=== PATIENT | female | born 1940 ===

== ENCOUNTER 2018-08-02 12:29 | Observation (INO) | payer MEDICARE, OTHER ==
[~2018-08-02] VITALS: Ht 167.6 cm; Wt 73.9 kg
[~2018-08-02 12:29] MED LIST: ASPI-515 PO; CALC500T93 PO; LISI40TA PO; LOVA40TA2 PO; RANI150C PO
[2018-08-02] MEDS ORDERED: CLON0.1T PO (13:01)
[2018-08-02] MEDS ORDERED: ASPIRIN 81 MG TABLET CHEW ONE (13:21)
[2018-08-02] MEDS ORDERED: NITROGLYCERIN OINT 2%, 1GM TP ONE ×2 (13:21→13:30)
[2018-08-02 13:23] LABS: BASOPHILS # (AUTO) 0.04 x10^3/uL (0-0.1); BASOPHILS % (AUTO) 1 % (0-1); EOSINOPHILS # (AUTO) 0.34 x10^3/uL (0-0.4); EOSINOPHILS % (AUTO) 7 % (1-7); LYMPHOCYTES # (AUTO) 1.29 x10^3/uL (1-3.4); LYMPHOCYTES % (AUTO) 28 % (22-44); MD NO; MEAN CORPUSCULAR HEMOGLOBIN 30.4 pg (27.0-34.8); MEAN CORPUSCULAR HGB CONC 34.3 g/dL (32.4-35.8); MEAN CORPUSCULAR VOLUME 88.5 fL (80-100); MEAN PLATELET VOLUME 8.7 fL (7.4-10.4); MONOCYTES # (AUTO) 0.49 x10^3/uL (0.2-0.8); MONOCYTES % (AUTO) 11 % (2-9); NEUTROPHILS % (AUTO) 54 % (42-75); PLATELET COUNT 190 x10^3/uL (130-400); RED BLOOD COUNT 4.32 x10^6/uL (3.82-5.3); RED CELL DISTRIBUTION WIDTH 14.2 % (9.6-15.2)
[2018-08-02] MEDS ORDERED: ASPIRIN 81 MG TABLET CHEW PO ONE (13:30)
[2018-08-02] MEDS ORDERED: SODIUM CHLORIDE FLUSH 10ML SYR IVF ONE (13:30)
[2018-08-02 13:36] LABS: ALANINE AMINOTRANSFERASE 51 U/L (12-78); ALBUMIN 3.8 g/dL (3.4-5.0); ANION GAP 10 mmol/L (5-15); CALCIUM 9.1 mg/dL (8.5-10.1); CHLORIDE 109 mmol/L (98-107); CREATININE 0.95 mg/dL (0.55-1.02)
[2018-08-02 13:41] LABS: ALKALINE PHOSPHATASE 105 U/L (45-117); BILIRUBIN,TOTAL 1.2 mg/dL (0.2-1.0); TOTAL PROTEIN 7.6 g/dL (6.4-8.2); TROPONIN I < 0.015 ng/mL (0.000-0.045)
[2018-08-02 14:00] LABS: MICROSCOPIC AUTO
[2018-08-02 14:06] LABS: CULTURE INDICATED? YES
[2018-08-02] MEDS ORDERED: SODIUM CHLORIDE 0.9% 1,000 ML IV SCH (14:45)
[2018-08-02] MEDS ORDERED: ONDANSETRON 2MG/ML, 2ML IVPush PRN (15:00)
[2018-08-02] MEDS ORDERED: hydrALAzine 20 MG/ML, 1ML IVPush PRN (15:00)
[2018-08-02] MEDS ORDERED: BISACODYL 10 MG SUPP PR PRN (15:00)
[2018-08-02] MEDS ORDERED: POLYETHYLENE GLYCOL 17 GM PACKET PO PRN (15:00)
[2018-08-02] MEDS ORDERED: DOCUSATE 100 MG CAPSULE PO PRN (15:00)
[2018-08-02] MEDS ORDERED: ENALAPRILAT 1.25 MG/ML, 2ML IVPush PRN (15:00)
[2018-08-02 15:14] VITALS: BP 160/68
[2018-08-02] MEDS: ENOXAPARIN 40 MG/0.4 ML SQ SCH (15:24)
[2018-08-02] MEDS ORDERED: PRAV20TA2 PO (17:09)
[2018-08-02] MEDS ORDERED: LEVO50TA5 PO (17:09)
[2018-08-02] MEDS ORDERED: CALC-534 PO (17:09)
[2018-08-02 19:30] LABS: TROPONIN I < 0.015 ng/mL (0.000-0.045)
[2018-08-02] MEDS ORDERED: PRED5DRO15 RIGHTEYE (19:52)
[2018-08-02 20:00] VITALS: BP 165/68
[2018-08-02] MEDS: predniSOLONE OPHTH SUSP 1%, 5ML RIGHTEYE SCH (20:10)
[2018-08-03] VITALS (9 sets, daily range): BP systolic 101–214; BP diastolic 59–88
[2018-08-03 00:09] LABS: TROPONIN I < 0.015 ng/mL (0.000-0.045)
[2018-08-03] MEDS: predniSOLONE OPHTH SUSP 1%, 5ML RIGHTEYE SCH ×4 (04:57→19:44)
[2018-08-03 05:37] LABS: CHOL/HDL RATIO 5.3; LDL/HDL RATIO 2.1 (0.5-3.0)
[2018-08-03] MEDS ORDERED: ASPIRIN 325 MG TABLET EC PO SCH (06:00)
[2018-08-03] MEDS: ACETAMINOPHEN 325 MG TABLET PO PRN (06:50)
[2018-08-03] MEDS: LISINOPRIL 20 MG TABLET PO SCH (08:05)
[2018-08-03] MEDS: ASPIRIN 81 MG TABLET EC PO SCH (14:40)
[2018-08-03] MEDS ORDERED: AMLODIPINE 5 MG TABLET PO SCH (15:00)
[2018-08-03] MEDS: ENOXAPARIN 40 MG/0.4 ML SQ SCH (15:03)
[2018-08-03] MEDS: AMLODIPINE 5 MG TABLET PO SCH (16:31)
[2018-08-03] MEDS ORDERED: OMNIPAQUE 350 MG/ML, 100ML BOTTLE ONE (18:05)
[2018-08-04] MEDS: ACETAMINOPHEN 325 MG TABLET PO PRN (00:09)
[2018-08-04 00:54] VITALS: BP 104/68
[2018-08-04 01:00] VITALS: BP 152/65
[2018-08-04] MEDS: predniSOLONE OPHTH SUSP 1%, 5ML RIGHTEYE SCH ×2 (05:12→11:52)
[2018-08-04 07:00] VITALS: BP_SYST 120; BP_SYST 182; BP_DIAS 73; BP_DIAS 75
[2018-08-04] MEDS: ASPIRIN 81 MG TABLET EC PO SCH (08:27)
[2018-08-04] MEDS: LISINOPRIL 20 MG TABLET PO SCH (08:28)
[2018-08-04] MEDS: AMLODIPINE 5 MG TABLET PO SCH (08:28)
[2018-08-04] MEDS ORDERED: AMLO5TAB7 PO (09:15)
== END 2018-08-04 12:23 | disposition home or self-care (01) ==
LOC: ED 14:00 → EDIP 14:01 → INTOOBSV 14:01 → ED 14:13 → 5SO 14:53 → DCLOUNGE 08-04 12:00
PROVIDERS: ADMIT Hospitalist; ATTEND Hospitalist
DX: R07.89 Other chest pain (principal); I11.9 Hypertensive heart disease without heart failure; I70.8 Atherosclerosis of other arteries; M06.9 Rheumatoid arthritis, unspecified; G45.8 Other transient cerebral ischemic attacks and related syndromes; R55 Syncope and collapse; Z79.82 Long term (current) use of aspirin; Z79.890 Hormone replacement therapy; Z79.899 Other long term (current) drug therapy; Z80.0 Family history of malignant neoplasm of digestive organs; Z82.49 Family history of ischemic heart disease and other diseases of the circulatory system
CPT/HCPCS: 36415; 71045; 71275; 78452; 80053; 80061; 81001; 84443; 84484; 85025; 87086; 87147; 93005; 93017; 93306; 93930; 96361; 96372; 96374; 99285; A9502; C9898; G0378; J1650; J7030; Q9967

== ENCOUNTER → 2019-11-21 | Outpatient (CLI) | payer MEDICARE, OTHER ==
[~2019-11-21] MED LIST changes: +AMLO-150 PO; +CALC-534 PO; +CLON0.1T22 PO; +LEVO50TA5 PO; +PRAV20TA2 PO; +PRED5DRO15 RIGHTEYE
== END | disposition home or self-care (01) ==
LOC: CVU 08:37
PROVIDERS: ATTEND Internal Medicine Cardiovascular Disease
DX: I65.23 Occlusion and stenosis of bilateral carotid arteries (principal); R09.89 Other specified symptoms and signs involving the circulatory and respiratory systems; I10 Essential (primary) hypertension; E78.5 Hyperlipidemia, unspecified
CPT/HCPCS: 93880

== ENCOUNTER 2021-01-20 07:30 | Outpatient (CLI) | payer MEDICARE, OTHER ==
[~2021-01-20 07:30] MED LIST changes: -ASPI-515 PO; +ASPI-963 PO; -LISI40TA PO; +LISI40TA9 PO
== END 2021-01-20 23:59 | disposition home or self-care (01) ==
LOC: CVU 07:30
PROVIDERS: ATTEND Internal Medicine Cardiovascular Disease
DX: I65.23 Occlusion and stenosis of bilateral carotid arteries (principal); R07.89 Other chest pain; I10 Essential (primary) hypertension; I73.9 Peripheral vascular disease, unspecified
CPT/HCPCS: 93306; 93356; 93880

== ENCOUNTER → 2021-01-30 | Outpatient (CLI) | payer MEDICARE, OTHER ==
[~2021-01-30] MED LIST changes: +REGADENOSON 0.4 MG/5 ML SYRINGE ONE
== END | disposition home or self-care (01) ==
LOC: CFH 07:21
PROVIDERS: ATTEND Internal Medicine Cardiovascular Disease
DX: I10 Essential (primary) hypertension (principal); R07.89 Other chest pain; I73.9 Peripheral vascular disease, unspecified
CPT/HCPCS: 78452; 93017; A9502; J2785